=== PATIENT | female | born 1980 | race Caucasian/White ===

== ENCOUNTER 2018-03-14 07:36 | Day surgery (SDC) | payer MEDICARE, MEDICAID ==
[2018-03-14] MEDS ORDERED: BUPIVACAINE/EPI 0.5% 10 ML SOL INFIL ONE (07:46)
[2018-03-14] MEDS ORDERED: MIDAZOLAM 2 MG/2 ML SOL ONE (08:23)
[2018-03-14] MEDS ORDERED: PROPOFOL 500 MG/50 ML EMU IV ONE (08:23)
[2018-03-14] MEDS ORDERED: FENTANYL 100MCG/2ML SOL ONE (08:23)
[2018-03-14 10:21] VITALS: O2SAT 98
[2018-03-14 10:29] VITALS: BP 117/69; PULSE 70; RESP 18; TEMP 97.4
== END 2018-03-14 11:00 | disposition home or self-care (01) | DRG 607 ==
LOC: SURG 07:36
PROVIDERS: ATTEND Surgery
DX: L72.12 Trichodermal cyst (principal)
CPT/HCPCS: G0168; J2250; J3010; J2704